=== PATIENT | male | born 1975 | race Caucasian/White ===

== ENCOUNTER 2022-06-05 01:18 | Day surgery (SDC) | payer OTHER, SELFPAY ==
[2022-06-04 09:35] VITALS: BMI 33.3
--- NOTE | 2022-06-04 09:49 | PC.NURSE ---
Report to the Outpatient Waiting Room, entrance under the green pavilion located off [facility], at time __0600 on date __06/05/22 . OR Time: . - You and your visitor will be asked to self-screen and do not enter if you have any COVID symptoms. - Only one visitor and NO children visitors are allowed at this time. - The patient visitor is requested to leave or wait in car when not with patient due to restrictions. - A mask is required within the hospital. Patients may have clear liquids (water, carbonated beverages, clear teas, apple juice) until 3 hours prior to surgery (0430 AM) with a maximum of 20 ounces. - No food from midnight until time of surgery - Infants may have breast milk until 4 hours before surgery, infant formula 6 hours prior to surgery. - Children will be allowed to drink immediately following surgery. If applicable, please bring a bottle or sippy cup to assist with drinking. Juice, water, soda, and popsicles are readily available. For infants on formula, please bring formula the day of surgery. Pacifiers are allowed. Take the following medications with a SIP of water the morning of surgery: NONE Medications to discontinue per physician ___STATES STOPPING ASA & VIT D OVER A WEEK AGO Date to take last dose Please no make-up, nail english, hairspray, perfume, deodorant, or body powder the day of surgery. No jewelry (including any body piercings) or valuables the day of surgery, leave them at home. Please take a shower or bath the night before, or the morning of, surgery with an antibacterial soap. Wear comfortable, loose fitting clothing. Children are encouraged to wear pajamas. - Jewelry must be removed prior to entering the operating room. Rings and piercings that are not removed may be cut off. - The hospital will not accept responsibility for valuables. - Please leave all valuables, including medications, at home the day of surgery. If you are going home after surgery, a licensed new autos delivery driver must drive you home. - NO public transportation without another adult. - We recommend that an adult stay with you for 24 hours following discharge. - We also recommend that you do not drive, make important decision, drink alcoholic beverages, or take any drugs that were not prescribed by your health care provider for at least 24 hours after your discharge time. For Pediatric surgeries, we recommend two adults accompany the child home (only one inside the building at this time). Follow any additional instructions given to you from your surgeon. HIBICLENS SHOWER AM OF SURGERY If you or anyone in your household have experienced Covid symptoms in the past week, please notify your surgeon or the nurse liaison at the phone number below for possible testing. Telephone instructions given to ____PT and asked if any additional questions and then verbalized understanding. Patient advised to call surgeon office or pre surgery nurse liaison [phone] if any additional questions.
--- NOTE | 2022-06-05 06:54 | P.PNAN_ITS ---
Anes - Initial Pre Proc Eval Procedure: Operation Date: 06/05/22 07:30 Proposed Procedures p Laparoscopic Umbilical Hernia Repair with DaVinci Assisted - Randy Angeles DO Date/Time: 06/05/22 06:54 Surgeon: Randy Angeles DO Pre Op Diagnosis: Umb Hernia Patient Data Age: 46 Gender: M Height: 1.83 m Weight: 111.36 kg Allergies Allergy/AdvReac Type Severity Reaction Status Date / Time No Known Allergies Allergy Verified 06/04/22 09:34 Home Medications Medication Instructions Recorded Confirmed Type cholecalciferol (vitamin D3) 50 50 mcg PO DAILY 06/05/21 06/04/22 History mcg (2,000 unit) capsule aspirin 81 mg tablet,delayed 81 mg PO DAILY 05/17/22 06/04/22 History release (Adult Aspirin Regimen) Patient hx anesthesia problems: none Family hx anesthesia problems: none Results Review: All pre-operative results and documents have been reviewed as part of the pre- operative evaluation. [facility] Past Medical History Medical History (Reviewed 05/17/22 @ 10:02 by Saray Candelario [facility]) Elevated blood pressure reading Surgical History Surgical History H/O shoulder surgery Social History Social History Smoking status: Never smoker Second hand tobacco smoke exposure: No Alcohol intake: current Drinks per week: 4 Alcohol use details: STATES 4-5 DRINKS/WEEK Substance use: never Substance use type: does not use Living arrangements: with family Spiritual care concerns: No Anes - Eval Final PreProcedure Day of Procedure 06/05/22 06:54 Patient weight: obese Heart: regular rate and rhythm Lungs: clear to auscultation Airway: Mallampati scale class II Neurological: alert and oriented Last oral intake: >/= 8 hours ASA classification: II Emergent: no Anesthetic plan: proceed Anesthesia type and monitoring: general ETT and standard monitoring Results Review: All pre-operative results and documents have been reviewed as part of the pre- operative evaluation. Informed Consent: The patient's anesthetic plan and its attendant risks and benefits were discussed with the patient/family/POA. Questions were solicited and answers provided to the satisfaction of the patient/family/POA.
[2022-06-05] MEDS: LACTATED RINGERS 1,000 ML 30 ML IV CONT ×2 (06:55→09:24)
[2022-06-05] MEDS: KETOROLAC 15 MG/ML VIAL (*BKC) IV PUSH (06:55)
[2022-06-05] MEDS: ACETAMINOPHEN 500 MG TABLET 1000 MG PO (06:55)
--- NOTE | 2022-06-05 07:14 | WPDHPUPDATE1 ---
History and Physical Update Update Date/Time: 06/05/22 07:14 History and Physical has been reviewed, including an updated exam of the patient. There are NO changes in the patient's condition. Risks, benefits, and alternatives have been discussed and questions answered. Patient agrees to proceed with procedure.
[2022-06-05] MEDS: ceFAZolin 2 GM/D5W 50 ML 2 GM/50 ML BAG IVPB (07:26)
--- NOTE | 2022-06-05 09:21 | W.PM.PROC2 ---
Procedure Note - Detailed Date of Procedure 06/05/22 Pre-op Diagnosis Umbilical hernia Post-op Diagnosis Same Procedure Performed Laparoscopic umbilical Hernia Repair with Mesh, da Celena assisted Surgeon Randy Anglees DO Anesthesia General and Local (Exparel) Indications This is a 46-year-old man who presented an umbilical bulge. He 1st noticed this about 15 years ago, but over the past 2 years has noticed that it is increased in size and causing discomfort with activity. He was found have an umbilical hernia containing fat hernia discussions were made with the patient about treatment options and decision was made to proceed with robotic assisted laparoscopic umbilical hernia repair with mesh. Findings Laparoscopic umbilical hernia repair was performed. A robotic transabdominal preperitoneal approach was utilized. The patient was found to have a 1.5 cm umbilical hernia containing preperitoneal fat. A preperitoneal pocket was created for mesh placement. The hernia defect was closed using an 0 Stratafix running absorbable suture. A Ventralight ST 15 cm x 10 cm mesh was then placed within the preperitoneal pocket and secured to the abdominal wall using 2-0 Vicryl simple interrupted sutures at the 4 corners and central portion of the mesh. The preperitoneal pocket was then closed using a 3-0 V lock running absorbable suture. No specimens were obtained for pathology and no other intra-abdominal abnormalities were noted. Description of Procedure Procedure as well as risks, benefits, and alternatives were discussed with the patient. Written consent was obtained and placed in chart prior to procedure. Patient was brought back to surgical suite. He was placed supine on operating table. Time-out was done to confirm patient and procedure. He was then intubated by the anesthesia department. A bump was placed under his left hip, and the bed was flexed slightly to extend the space between his costal margin and iliac crest. His abdomen was prepped and draped in sterile fashion using chlorhexidine prep. A 5 millimeter incision was made in the left upper quadrant, and a 5 millimeter Optiview trocar was advanced through the abdominal layers under direct visualization. Once inside the abdominal cavity, carbon dioxide insufflation was used to create a pneumoperitoneum. His abdomen was inspected. An 8 millimeter incision was made in the left lower quadrant, and an 8 millimeter robotic trocar was placed under direct visualization. Another 8 millimeter incision was made in the left lateral abdomen, and an 8 millimeter robotic trocar was placed under direct visualization. Exparel was infiltrated along the lateral abdominal shin to perform a transversus abdominis plane block bilaterally. The 5 millimeter port was removed, the incision was extended to 12 millimeters, and a 12 millimeter air seal port was placed under direct visualization. A Jason-Walls cone was also used to place an 0-Vicryl simple interrupted suture at this trocar site. The robotic arms were brought up to the patient's bedside and secured to the ports. The camera and instruments were inserted, and I then moved over to the robotic console and took control of the camera and instruments. After careful thorough inspection of the abdominal cavity, I began my dissection at the hernia. A preperitoneal pocket was created by starting in the left upper quadrant and extending the preperitoneal flap inferiorly. The preperitoneal pocket was then carefully dissected using scissors with electrocautery and the hernia sac and preperitoneal fat was reduced from within the hernia defect. I then continued the dissection far enough laterally to the right side to allow for mesh placement. I then measured the hernia size. The hernia measured 1.5 cm. The fascia was closed using an 0-Stratafix running suture in a vertical fashion. A Ventralight ST 15 cm x 10 cm mesh was then placed within the preperitoneal pocket. This
[2022-06-05 09:30] VITALS: BP 133/90; PULSE 91; RESP 14; TEMP 36.4; O2SAT 100
[2022-06-05 09:45] VITALS: BP 131/88; PULSE 76; RESP 16; O2SAT 100
[2022-06-05 10:00] VITALS: BP 126/80; PULSE 70; RESP 20; O2SAT 95
[2022-06-05 10:15] VITALS: BP 123/82; PULSE 70; RESP 16; O2SAT 95
[2022-06-05 10:18] VITALS: BP 128/83; PULSE 60; RESP 20
[2022-06-05 10:45] VITALS: BP 131/88; PULSE 56; RESP 20
== END 2022-06-05 10:55 | disposition home or self-care (01) ==
PROVIDERS: Visit Provider Surgery
PROC: (CPT 49652; principal; 2022-06-05 07:30)
DX: K42.9 Umbilical hernia without obstruction or gangrene (principal); Z79.82 Long term (current) use of aspirin; E66.9 Obesity, unspecified; Z68.33 Body mass index [BMI] 33.0-33.9, adult
CPT/HCPCS: 49652; S2900; 36415; 86850; 86900; 86901; A9270; C1781; C9290; J0690; J1100; J1885; J2250; J2405; J2704; J3010; J7030; J7120

== ENCOUNTER 2024-03-26 08:17 | Emergency (ER) | payer OTHER, SELFPAY ==
[2024-03-26 08:27] VITALS: BP 131/83; PULSE 63; RESP 16; TEMP 36.3; O2SAT 97
--- NOTE | 2024-03-26 08:27 | ED.URI ---
HPI - URI/Sore Throat General Chief Complaint: Upper Respiratory Infection Stated Complaint: Cough Time Seen by Provider: 03/26/24 08:40 Source: patient, RN notes reviewed and old records reviewed Mode of arrival: ambulatory Limitations: no limitations History of Present Illness HPI Narrative: 48 year old male who presents to [facility] care with complaints of cough for the past 3 weeks that has been nonproductive, does wake him at night. Patient reports that he feels a constant tickle in his throat which aggravates the coughing. Patient denies any known fevers,chills or sweats, reports that son has been ill recently also.Patient reports past history of pneumonia. MD elicited complaint: cough Pertinent past history: pneumonia Onset (ago): week(s) (3) Consistency: constant Description of mucous: clear Treatments prior to arrival: none Related Data Home Medications Medication Instructions Recorded Confirmed aspirin 81 mg tablet,delayed 81 mg PO DAILY 05/17/22 03/26/24 release (Adult Aspirin Regimen) Allergies Allergy/AdvReac Type Severity Reaction Status Date / Time No Known Allergies Allergy Verified 03/26/24 08:34 Review of Systems Review of Systems: CONSTITUTIONAL: Denies malaise, chills, sweats, or fever. EYES: Denies visual changes, redness, or discharge. ENT: Reports rhinorrhea, congestion,no sinus pain,no otalgia and no sore throat. CARDIOVASCULAR: Denies chest pain, palpitations, or edema. RESPIRATORY: Reports cough.? Denies dyspnea. GASTROINTESTINAL: Denies abdominal pain, nausea, vomiting, diarrhea SKIN: Denies rash or itching. MUSCULOSKELETAL: Denies myalgia. NEUROLOGIC: Denies headache. All systems reviewed & are unremarkable except as noted in HPI and below PMFSH Past Medical History Medical History COVID-19 with pneumonia April 2020 Elevated blood pressure reading Surgical History Surgical History H/O shoulder surgery Hx of umbilical hernia repair LAP umbilical hernia repair Da Celena assisted on 06/05/22 S/P hernia repair Social History Social History Smoking status: Never smoker Second hand tobacco smoke exposure: No Alcohol intake: current Drinks per week: 4 Alcohol use details: STATES 4-5 DRINKS/WEEK Substance use: never Substance use type: does not use Living arrangements: with family Gender identity (if verbalized by the patient): Male Sexual Orientation (if Verbalized by the Patient): Straight or Heterosexual Spiritual care concerns: No Comments At time of signature, agree with nursing past medical, surgical, social and family history. There is no relevant family history pertinent to the presenting complaint Exam Narrative: GENERAL: Well-appearing, well-nourished, and in no acute distress. HEAD: Normocephalic EYES: PERRLA, conjunctivae clear ENT: Nares clear, turbinates edematous and erythematous, clear discharge. Mucous membranes moist. TM pearly emanuel with dull light reflex bilaterally; no tragal tenderness. Oropharynx erythematous without lesions. Tonsils not enlarged and without exudate, no drooling, no hoarseness, no trismus, uvula midline.post nasal drainage NECK: Supple. No lymphadenopathy CHEST: Clear to auscultation, breath sounds equal. No wheezing, rhonchi, rales, or stridor. No respiratory distress, speaks in full sentences. dry cough worse at night, SAO2 97% on room air HEART: Regular rate and rhythm. No murmur heard. SKIN: Warm, dry, no rash. NEURO: Alert and oriented x3. PSYCH: Normal mood and affect Course Course Emergency Course: Patient is aware of diagnosis, understands and agrees to treatment plan.? Anticipatory guidance given.? Patient agrees to follow-up as directed and is aware of reasons to seek care at the emergency departmen
== END 2024-03-26 09:08 | disposition home or self-care (01) ==
PROVIDERS: Emergency Provider Registered Nurse
DX: R05.9 Cough, unspecified (principal); J01.40 Acute pansinusitis, unspecified; Z86.16 Personal history of COVID-19
CPT/HCPCS: 99213; G0463

== ENCOUNTER 2025-02-07 08:49 | Emergency (ER) | payer OTHER, SELFPAY ==
--- NOTE | 2025-02-07 08:52 | ED.EYEPROB ---
HPI - Eye Problem General Chief complaint: Eye Problems Stated complaint: stye Time Seen by Provider: 02/07/25 08:52 Source: patient Mode of arrival: ambulatory Limitations: no limitations History of Present Illness HPI Narrative: Ben is a 49-year-old male patient presenting to the clinic today with complaints of a possible stye in the right lower eyelid for the past 2-3 days. He denies any fevers, chills, body aches. States his was concerned that it may be shingles near his eye so he was coming in to have it evaluated today. He denies any visual changes Related Data Home Medications ?Medication ?Instructions ?Recorded ?Confirmed ?Last Taken ?Type aspirin 81 mg tablet,delayed 81 mg PO DAILY 05/17/22 03/26/24 Unknown History release (Adult Aspirin Regimen) Allergies Allergy/AdvReac Type Severity Reaction Status Date / Time No Known Allergies Allergy Verified 02/07/25 09:15 Review of Systems Review of Systems: Pertinent positives per HPI. Patient denies any fever, chills, rash, headache, visual changes, dizziness, cough, shortness of breath, chest pain, palpitations, nausea, vomiting, diarrhea, constipation, abdominal pain, or any urinary issues. [facility] Past Medical History Medical History COVID-19 with pneumonia April 2020 Elevated blood pressure reading Surgical History Surgical History Hx of umbilical hernia repair LAP umbilical hernia repair Da Celena assisted on 06/05/22 S/P hernia repair H/O shoulder surgery Social History Social History Smoking status: Never smoker Second hand tobacco smoke exposure: No Alcohol intake: current Drinks per week: 4 Alcohol use details: STATES 4-5 DRINKS/WEEK Substance use: never Substance use type: does not use Living arrangements: with family Gender identity (if verbalized by the patient): Male Sexual Orientation (if Verbalized by the Patient): Straight or Heterosexual Spiritual care concerns: No Comments At the time of my signature, I reviewed and agree with the nursing past medical, surgical, social, and family history. There is no relevant family history pertinent to the patient complaint. Exam Narrative: General: Well-developed, well nourished, in no apparent distress Head: Normocephalic, atraumatic Eyes: Pupils equally round and reactive to light bilaterally, EOM intact, sclera and conjunctive clear, no discharge, right lower eyelid swollen and red with some lower periorbital edema, tender to palpation over the right lower lateral eyelid with a visualized internal stye to the right lower lateral eyelid Ears: TMs intact and clear, ear canals clear, no drainage, grossly hearing normal. Nose: Nares patent, no discharge, no inflammation, no sinus tenderness. Mouth: Oral pharynx without lesions or masses, good dentition, MMM. Neck: Supple, trachea midline, no enlargement of anterior or posterior cervical nodes, no thyroid masses or goiter palpable. Cardio: Regular rate and rhythm, s1 and s2 normal, no murmur appreciated. Resp: Clear to auscultation bilaterally, no rhonchi, rales, wheezing or rubs Course Course Emergency Course: Portions of this record may have been created with voice recognition software. Level of Care: Express Care Visit Vital Signs Vital signs: Vital Signs Temperature 36.4 C 02/07/25 09:02 Pulse Rate 72 02/07/25 09:02 Respiratory Rate 18 02/07/25 09:02 Blood Pressure 131/85 02/07/25 09:02 Pulse Oximetry 97 02/07/25 09:02 Oxygen Delivery Room Air 02/07/25 09:02 Temperature 36.4 C 02/07/25 09:02 Pulse Rate 72 02/07/25 09:02 Respiratory Rate 18 02/07/25 09:02 Blood Pressure 131/85 02/07/25 09:02 Pulse Oximetry 97 02/07/25 09:02 Oxygen Delivery Room Air 02/07/25 09:02 Vital signs reviewed MDM - Eye Problem MDM Narrative Medical decision making narrative: At the time of visit patient is resting comfortably on the exam table. Patient appears to be nontoxic. Plan: I suspect patient has a stye in the right lower lateral eyelid. Prescription for polymyxin eyedrops was sent to the pharmacy. Supportive measures were discussed with the patient and they voiced understanding discharge instructions and agrees to treatment plan. Return precautions reviewed Differential Diagnosis Differential diagnosis: Likely corneal abrasion, conjunctivitis, acute iritis, hyphema, periorbital cellulitis, subconjunctival hemorrhage, glaucoma, corneal ulcer, ruptured globe and other (Stye) Discharge Plan Discharge Clinical Impression: Hordeolum eyelid, internal Qualifiers: Laterality: right Eyelid: lower Qualified Code(s): H00.022 - Hordeolum internum right lower eyelid Patient Disposition: Home Condition: Stable Instructions: Antibiotic Form, Aleksandar (ED) Additional Instructions: Practice good hand washing techniques Avoid touching eyes Instill eyedrops as prescribed-polymyxin Apply warm moist washcloth compresses 15 minutes at a time at least 6 times per day If eyes are matted shut-do not pry eyes open-use a warm moist cloth to loosen matting and wipe matter away from eye May take Tylenol/Motrin as needed for pain or fever May take Benadryl as needed for itching Follow-up with your PCP in 3-5 days if symptoms persist or sooner if they worsen Go to the emergency room if you develop any fever that is not controlled by Tylenol or Motrin, loss of vision, eye pain, increase eye swelling,visual changes, headache, confusion, lethargy, weakness, chest pain, or shortness of breath. Patient Language: Welsh Prescriptions: New polymyxin B sulf-trimethoprim 10,000 unit- 1 mg/mL drops 1 drp RIGHT EYE Q3H 7 Days Qty: 10 0RF Rx Instructions: while awake; do not exceed 6 doses in 24 hours No Action amoxicillin-pot clavulanate 875-125 mg tablet 1 tablet PO Q12H Qty: 20 0RF prednisone 20 mg tablet 20 mg PO BID Qty: 10 0RF aspirin [Adult Aspirin Regimen] 81 mg tablet,delayed release (DR/EC) 81 mg PO DAILY Patient Comments: QAM ibuprofen 800 mg tablet 800 mg PO Q8H PRN (Reason: pain) Qty: 30 0RF Follow-up/Referrals: PHYSICIAN,CLUBHOUSE ATTENDANT [Primary Care Provider] - Time of Disposition: 09:15 Quality NIHSS Nursing Documentation ED NIHSS nursing documentation: reviewed/agree
--- OUTSIDE RECORDS SUMMARY | 2025-02-07 08:53 | XMS_ITS | Clinical Summary ---
Author Organization [facility] Address [address] [place] [address] Care Team Providers Care Director Of Product Management Name Role Phone Cedric Colunga MD Primary Care Provider [phone] Source Comments [employer] [facility],non-owned Affiliates and Associated Physician Practices is amultiple site organization consisting of ambulatory clinics and hospital sitesin [place], [place], [place] and [place]. This disclosure is being madepursuant to the Care Everywhere program and may not contain all information available regarding this patient. Last updated [employer] Allergies No known active allergies Medications * Be aware that medications may not be up to date on this document. Alwaysverify current medications with the patient. aspirin (ASPIRIN) 81 MG tablet Take 81 mg by mouth once daily Active Social History Tobacco Use Types Packs/Day Years Used Date Smoking Tobacco: Never Smokeless Tobacco: Never Sex and Gender Information Value Date Recorded Sex Assigned at Not on file Legal Sex Male 8:49 AM CDT Gender Identity Not on file Sexual Orientation Not on file Last Filed Vital Signs Vital Sign Reading Time Taken Comments Blood Pressure 112/78 05/25/2019 9:34 AM CDT Pulse 85 05/25/2019 9:34 AM CDT Temperature 37.8 C (100.1 F) 05/25/2019 9:34 AM CDT Respiratory Rate 14 05/25/2019 9:34 AM CDT Oxygen Saturation 95% 05/25/2019 9:34 AM CDT Inhaled Oxygen Concentration - - Weight 111.1 kg (245 lb) 05/25/2019 9:34 AM CDT Height 185.4 cm (6' 1 ) 05/25/2019 9:34 AM CDT Body Mass Index 32.32 05/25/2019 9:34 AM CDT Plan of Treatment Health Maintenance Due Date Last Done Comments COLOGUARD (AGES 45-75) - COL ON CA SCREENING 1974 COLON MONITORING 1974 COLONOSCOPY - COLON CA SCREENING 1974 CT COLONOGRAPHY - COLON CA SCREENING 1974 Colorectal Cancer Screening 1974 FIT - COLON CA SCREENING 1974 FLEX SIG - COLON CA SCREENING 1974 LIPID TESTING 1974 HIV SCREENING 1989 HEPATITIS C SCREENING 06/28/1992 DTAP/TDAP/TD VACCINES (1 - Tdap) 1993 HEPATITIS B VACCINE (1 of 3 - 19+ 3-dose series) 1993 SCREENING FOR DIABETES 05/25/2019 COVID-19 VACCINE (1 - 2023-2 5 season) 2024 PNEUMOCOCCAL VACCINE 50+ (1 of 1 - PCV) 2024 ZOSTER VACCINE (1 of 2) 2024 DEPRESSION SCREENING 09/29/2024 INFLUENZA VACCINE (Season Ended) 2025 HIB VACCINE Aged Out No longer eligi ble based on patient's age to complete this topic HPV VACCINE Aged Out No longer eligi ble based on patient's age to complete this topic MENINGOCOCCAL (Group B) VACC INE SHARED DECISION-MAKING Aged Out No longer eligibl e based on patient's age to complete this topic MENINGOCOCCAL GROUPS A/C/Y/W VACCINE Aged Out No longer eligible b ased on patient's age to complete this topic Insurance Care Teams Director Of Product Management Relationship Specialty Start Date End Date Cderic Colunga MD PCP - General Internal Medicine 05/25/19
--- OUTSIDE RECORDS SUMMARY | 2025-02-07 08:53 | XMS_ITS | Clinical Summary ---
Author Organization [facility] Address [address] [place] [id number] Care Team Providers Care Metal Casket Maker Name Role Phone Cedric Colunga MD Primary Care Provider [phone] Allergies No known active allergies Medications aspirin EC (ASPIRIN EC) 81 MG tablet Take 81 mg by mouth daily. Active Active Problems No known active problems Family History Medical History Relation Comments No Known Problems Father No Known Problems Mother Relation Status Comments Father Mother Social History Tobacco Use Types Packs/Day Years Used Date Smoking Tobacco: Never Smokeless Tobacco: Never Alcohol Use Standard Drinks/Week Comments Yes 0 (1 standard drink = 0.6 oz pur e alcohol) socially Sex and Gender Information Value Date Recorded Sex Assigned at Not on file Legal Sex Male 9:32 AM CDT Gender Identity Not on file Sexual Orientation Not on file Last Filed Vital Signs Vital Sign Reading Time Taken Comments Blood Pressure 145/99 06/05/2020 10:53 AM CDT Pulse 79 06/05/2020 10:53 AM CDT Temperature 36.8 C (98.3 F) 06/05/2020 10:53 AM CDT Respiratory Rate 18 06/05/2020 10:53 AM CDT Oxygen Saturation 96% 06/05/2020 10:53 AM CDT Inhaled Oxygen Concentration - - Weight 108.9 kg (240 lb) 06/05/2020 10:53 AM CDT Height 185.4 cm (6' 1 ) 06/05/2020 10:53 AM CDT Body Mass Index 31.66 06/05/2020 10:53 AM CDT Plan of Treatment Health Maintenance Due Date Last Done Comments Colorectal Cancer Screening Colonoscopy (10 Years) 1974 Annual Physical 1977 Hepatitis C 1992 DTaP, Tdap and Td Vaccines ( 1 - Tdap) 1993 Hepatitis B Vaccines (1 of 3 - 19+ 3-dose series) 1993 COVID-19 Vaccine (1 - 2023-2 5 season) 2024 Pneumococcal Vaccine: 50+ Ye ars (1 of 1 - PCV) 2024 Zoster Vaccines (1 of 2) 2024 Meningococcal B Vaccine Aged Out No l onger eligible based on patient's age to complete this topic Meningococcal Vaccine Aged Out No thaddeus chula eligible based on patient's age to complete this topic RSV Immunizations Under 20 Months Aged Out No longer eligible based on patient's age to complete this topic Insurance Care Teams Metal Casket Maker Relationship Specialty Start Date End Date Cedric Colunga MD PCP - General INTERNAL MEDICINE 05/07/20
[2025-02-07 09:02] VITALS: BP 131/85; PULSE 72; RESP 18; TEMP 36.4; O2SAT 97
== END 2025-02-07 09:20 | disposition home or self-care (01) ==
PROVIDERS: Emergency Provider Nurse Practitioner Family; Referring Provider Emergency Medicine
DX: H00.022 Hordeolum internum right lower eyelid (principal); Z86.16 Personal history of COVID-19; Z79.82 Long term (current) use of aspirin
CPT/HCPCS: 99213; G0463

== ENCOUNTER 2025-04-29 12:12 | Emergency (ER) | payer OTHER, SELFPAY ==
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
--- OUTSIDE RECORDS SUMMARY | 2025-04-29 12:23 | XMS_ITS | Clinical Summary ---
Author Organization [facility] Address [address] [address] Care Team Providers Care Dust Mop Maker Name Role Phone Cedric Colunga MD Primary Care Provider [phone] Source Comments [employer] [facility],non-owned Affiliates and Associated Physician Practices is amultiple site organization consisting of ambulatory clinics and [place] sitesin [place] and [place]. This disclosure is being madepursuant to the Care Everywhere program and may not contain all information available regarding this patient. Last updated 18.[employer] Allergies No known active allergies Medications * [...] 9:34 AM CDT Height 185.4 cm (6' 1) 05/25/2019 9:34 AM CDT Body Mass Index [...] 2) 2024 DEPRESSION SCREENING 09/29/2024 INFLUENZA VACCINE (#1) 2025 HIB VACCINE Aged Out No longer [...] to complete this topic Insurance Care Teams Dust Mop Maker Relationship Specialty Start Date End Date Cedric Colunga MD PCP - General Internal Medicine 05/25/19
--- OUTSIDE RECORDS SUMMARY | 2025-04-29 12:23 | XMS_ITS | Clinical Summary ---
Author Organization [facility] Address [address] [place] [id number] Care Team Providers Care Member Of Technical Staff Name Role Phone Cedric Colunga MD Primary Care Provider [phone] Allergies No known active allergies Medications aspirin [...] 10:53 AM CDT Height 185.4 cm (6' 1) 06/05/2020 10:53 AM CDT Body Mass Index [...] to complete this topic Insurance Care Teams Member Of Technical Staff Relationship Specialty Start Date End Date Cedric Colunga MD PCP - General INTERNAL MEDICINE 05/07/20
[2025-04-29 12:26] VITALS: BP 134/84; PULSE 72; RESP 14; TEMP 36.6; O2SAT 100
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
== END 2025-04-29 13:26 | disposition home or self-care (01) ==
PROVIDERS: Emergency Provider Nurse Practitioner Family
DX: S16.1XXA Strain of muscle, fascia and tendon at neck level, initial encounter (principal); S29.012A Strain of muscle and tendon of back wall of thorax, initial encounter; V43.52XA Car driver injured in collision with other type car in traffic accident, initial encounter
CPT/HCPCS: 72072; 99213; G0463